=== PATIENT | female | born 1950 | race Hispanic/Latino ===

== ENCOUNTER → 2018-09-20 | Outpatient (CLI) | payer OTHER | END | disposition home or self-care (01) | LOC: RAH 14:00 | PROVIDERS: ATTEND Internal Medicine Cardiovascular Disease | DX: Z13.6 Encounter for screening for cardiovascular disorders (principal) | CPT/HCPCS: 75571 ==

== ENCOUNTER → 2019-11-29 | Outpatient (CLI) | payer OTHER, MEDICARE | END | disposition home or self-care (01) | LOC: DAH 10:10 → EDSTATUS 12-03 21:49 | PROVIDERS: ATTEND Internal Medicine Gastroenterology | DX: Z01.818 Encounter for other preprocedural examination (principal); R14.0 Abdominal distension (gaseous); Z20.828 Contact with and (suspected) exposure to other viral communicable diseases; K92.2 Gastrointestinal hemorrhage, unspecified | CPT/HCPCS: C9803; U0003; 36415 ==

== ENCOUNTER 2020-03-20 16:39 | Emergency (ER) | payer OTHER, MEDICARE ==
[~2020-03-20 16:39] MED LIST: ASPI-1197 PO; ATOR40TA69 PO; CARV25TA PO; FURO40TA5 PO; HYDR100T27 PO; INSU10VI3 SQ; INSU3INS5 SQ; ISOS30TA6 PO; LOSA100T58 PO
== END 2020-03-20 17:25 | disposition left against medical advice (07) ==
LOC: EDH 16:39
DX: Z53.21 Procedure and treatment not carried out due to patient leaving prior to being seen by health care provider (principal); I25.10 Atherosclerotic heart disease of native coronary artery without angina pectoris; I50.9 Heart failure, unspecified; E11.9 Type 2 diabetes mellitus without complications; I10 Essential (primary) hypertension; Z88.0 Allergy status to penicillin

== ENCOUNTER 2020-07-22 18:02 | Observation (INO) | payer OTHER, MEDICARE ==
[~2020-07-22] VITALS: Ht 157.5 cm; Wt 108.4 kg
[~2020-07-22 18:02] MED LIST changes: -ISOS30TA6 PO; +ISOS30TA92 PO
[2020-07-22 18:27] LABS: BASOPHILS % (AUTO) 0.4 % (0.0-5.0); EOSINOPHILS % (AUTO) 13.7 % (0.0-8.0); HEMATOCRIT 37.3 % (36-48); LYMPHOCYTES % (AUTO) 17.9 % (21.0-51.0); MEAN CORPUSCULAR HEMOGLOBIN 26.3 pg (27.0-33.0); MEAN CORPUSCULAR HGB CONC 31.6 g/dL (32.0-36.0); MEAN CORPUSCULAR VOLUME 83.1 fL (79-99); MONOCYTES % (AUTO) 6.5 % (3.0-13.0); NEUTROPHILS % (AUTO) 61.2 % (40.0-77.0); PLATELET COUNT (AUTO) 145 K/uL (130-400); RED BLOOD CELL COUNT(AUTO) 4.49 MIL/uL (4.00-5.50); RED CELL DISTRIBUTION WIDTH 16.2 % (11.0-15.5)
[2020-07-22 18:38] LABS: POTASSIUM 5.8 mmol/L (3.5-5.1)
[2020-07-22 18:43] LABS: ALBUMIN 3.4 g/dL (3.5-5.0); BILIRUBIN,TOTAL 0.4 mg/dL (0.2-1.0); TOTAL PROTEIN, SERUM 7.5 g/dL (6.0-8.3)
[2020-07-22] MEDS ORDERED: SODIUM POLYSTYRENE SULFONATE 15 GM/60 ML ML PO SCH (20:35)
[2020-07-23] VITALS (13 sets, daily range): BP systolic 117–172; BP diastolic 42–114
[2020-07-23] MEDS ORDERED: ISOSORBIDE MONO 30MG TAB SR PO SCH ×2 (02:15→07:30)
[2020-07-23] MEDS ORDERED: GLUCAGON 1MG KIT 1 MG ML IM PRN (02:15)
[2020-07-23] MEDS ORDERED: DEXTROSE 50%-WATER 50 ML DISP.SYRIN IV PRN (02:15)
[2020-07-23 02:35] LABS: BASOPHILS % (AUTO) 0.4 % (0.0-5.0); EOSINOPHILS % (AUTO) 12.1 % (0.0-8.0); LYMPHOCYTES % (AUTO) 16.1 % (21.0-51.0); MEAN CORPUSCULAR HEMOGLOBIN 26.3 pg (27.0-33.0); MEAN CORPUSCULAR HGB CONC 32.1 g/dL (32.0-36.0); MEAN CORPUSCULAR VOLUME 81.9 fL (79-99); MONOCYTES % (AUTO) 5.7 % (3.0-13.0); NEUTROPHILS % (AUTO) 65.3 % (40.0-77.0); PLATELET COUNT (AUTO) 165 K/uL (130-400); RED BLOOD CELL COUNT(AUTO) 4.64 MIL/uL (4.00-5.50); WHITE BLOOD COUNT (AUTO) 10.9 K/uL (4.8-10.8)
[2020-07-23 02:43] LABS: CREATININE 2.2 mg/dL (0.5-1.5); POTASSIUM 5.2 mmol/L (3.5-5.1)
[2020-07-23 02:48] LABS: ALBUMIN 3.5 g/dL (3.5-5.0); BILIRUBIN,TOTAL 0.4 mg/dL (0.2-1.0); TOTAL PROTEIN, SERUM 7.7 g/dL (6.0-8.3)
[2020-07-23] MEDS ORDERED: SODIUM BICARB 8.4% 50ML SYRINGE IVP SCH (03:30)
[2020-07-23] MEDS ORDERED: DEXTROSE 50%-WATER 25 GM/50 ML VIAL IV SCH (03:30)
[2020-07-23] MEDS ORDERED: SODIUM POLYSTYRENE SULFONATE 15 GM/60 ML ML PO SCH (03:30)
[2020-07-23] MEDS ORDERED: ALBUTEROL SULFATE 0.083% 2.5 MG/3 ML INH IH SCH (03:30)
[2020-07-23] MEDS ORDERED: FUROSEMIDE 40MG VIAL (10MG/ML) IV SCH (03:30)
[2020-07-23] MEDS ORDERED: INSULIN HUMULIN R 100 UNIT/ML 3ML IV SCH (03:30)
[2020-07-23] MEDS ORDERED: CALCIUM GLUCONATE 1 GM/10 ML VIAL IV SCH (03:30)
[2020-07-23] MEDS: INSULIN HUMULIN R 100 UNIT/ML 3ML SQ SCH ×4 (07:30→21:00)
[2020-07-23] MEDS: ISOSORBIDE MONO 30MG TAB SR PO SCH (09:00)
[2020-07-23] MEDS ORDERED: LOSARTAN 100 MG TABLET PO SCH (09:00)
[2020-07-23] MEDS: ENOXAPARIN SODIUM 30 MG/0.3 ML SQ SCH (09:00)
[2020-07-23] MEDS: HYDRALAZINE HCL 25 MG TABLET PO SCH ×3 (09:00→22:07)
[2020-07-23] MEDS ORDERED: ASPIRIN 325 MG TABLET PO SCH (09:00)
[2020-07-23] MEDS ORDERED: FUROSEMIDE 40 MG TABLET PO SCH (09:00)
[2020-07-23] MEDS ORDERED: LOSARTAN 50 MG TABLET ONE (09:44)
[2020-07-23 10:05] LABS: CREATININE 2.2 mg/dL (0.5-1.5); POTASSIUM 4.5 mmol/L (3.5-5.1)
[2020-07-23] MEDS: CARVEDILOL 25 MG TABLET PO SCH ×2 (10:06→22:08)
[2020-07-23] MEDS: ASPIRIN 81MG TAB.CHEW PO SCH (10:07)
[2020-07-23] MEDS: FAMOTIDINE/PF 20 MG/2 ML VIAL IV SCH ×2 (10:09→10:11)
[2020-07-23 10:10] LABS: ALBUMIN 3.1 g/dL (3.5-5.0); BILIRUBIN,TOTAL 0.4 mg/dL (0.2-1.0); TOTAL PROTEIN, SERUM 6.9 g/dL (6.0-8.3)
[2020-07-23] MEDS: SODIUM CHLORIDE 0.9% 1000ML 1,000 ML IV SCH (11:00)
[2020-07-23] MEDS ORDERED: GABAPENTIN 100 MG CAPSULE ONE (12:53)
[2020-07-23] MEDS: GABAPENTIN 100 MG CAPSULE PO SCH ×2 (14:26→22:08)
[2020-07-23] MEDS ORDERED: LEVOFLOXACIN 500 MG/D5W 100 ML 100 ML IV SCH (19:30)
[2020-07-23] MEDS: ATORVASTATIN CALCIUM 40 MG TABLET PO SCH (22:08)
[2020-07-24] VITALS (7 sets, daily range): BP systolic 101–137; BP diastolic 39–89
[2020-07-24] MEDS ORDERED: DAPA10TA PO (05:31)
[2020-07-24] MEDS ORDERED: ICOS1CAP PO (05:31)
[2020-07-24] MEDS ORDERED: NITR100C PO (05:31)
[2020-07-24] MEDS ORDERED: VITAMIN D PO (05:31)
[2020-07-24] MEDS ORDERED: FURO40TA5 PO (05:31)
[2020-07-24] MEDS ORDERED: SPIR25TA6 PO (05:31)
[2020-07-24] MEDS ORDERED: GABA-533 PO (05:31)
[2020-07-24] MEDS ORDERED: INSU100I35 SQ ×2 (05:31)
[2020-07-24] MEDS: SODIUM CHLORIDE 0.9% 1000ML 1,000 ML IV SCH (05:38)
[2020-07-24] MEDS: INSULIN HUMULIN R 100 UNIT/ML 3ML SQ SCH ×4 (06:11→20:26)
[2020-07-24] MEDS: CARVEDILOL 25 MG TABLET PO SCH ×2 (09:00→20:21)
[2020-07-24] MEDS: ISOSORBIDE MONO 30MG TAB SR PO SCH (09:00)
[2020-07-24] MEDS: HYDRALAZINE HCL 25 MG TABLET PO SCH ×3 (09:00→20:17)
[2020-07-24] MEDS: ASPIRIN 81MG TAB.CHEW PO SCH (11:03)
[2020-07-24] MEDS: ENOXAPARIN SODIUM 30 MG/0.3 ML SQ SCH (11:04)
[2020-07-24] MEDS: GABAPENTIN 100 MG CAPSULE PO SCH ×3 (11:06→20:18)
[2020-07-24] MEDS: ATORVASTATIN CALCIUM 40 MG TABLET PO SCH (20:18)
[2020-07-24 21:42] LABS: APPEARANCE,URINE Cloudy (CLEAR); BILIRUBIN,URINE Negative (NEGATIVE); COLOR,URINE Yellow (YELLOW); GLUCOSE, URINE (UA) 500 mg/dL (NEGATIVE); KETONES,URINE Negative (NEGATIVE); LEUKOCYTE ESTERASE ,URINE Moderate (NEGATIVE); NITRATE,URINE Negative (NEGATIVE); OCCULT BLOOD,URINE Negative (NEGATIVE); PROTEIN,URINE POS 2+ mg/dL (NEGATIVE); UROBILINOGEN,URINE 0.2 mg/dL (0.2-1.0)
[2020-07-24 21:46] LABS: CREATININE,URINE RANDOM 78 mg/dL (30-135); PROTEIN,URINE RANDOM 139.4 mg/dL (0-11.9)
[2020-07-24 21:52] LABS: BACTERIA,URINE Many /HPF (None Seen); RBC,URINE None Seen /HPF (0-1); WBC,URINE 26-50 /HPF (0-1)
[2020-07-25] VITALS: BP 124/39
[2020-07-25] MEDS: SODIUM CHLORIDE 0.9% 1000ML 1,000 ML IV SCH (02:56)
[2020-07-25 04:00] VITALS: BP 153/55
[2020-07-25 05:48] LABS: HEMATOCRIT 32.7 % (36-48); MEAN CORPUSCULAR HEMOGLOBIN 25.7 pg (27.0-33.0); MEAN CORPUSCULAR HGB CONC 31.8 g/dL (32.0-36.0); MEAN CORPUSCULAR VOLUME 80.9 fL (79-99); RED BLOOD CELL COUNT(AUTO) 4.04 MIL/uL (4.00-5.50); RED CELL DISTRIBUTION WIDTH 15.8 % (11.0-15.5); WHITE BLOOD COUNT (AUTO) 7.3 K/uL (4.8-10.8)
[2020-07-25 06:02] LABS: CREATININE 2.5 mg/dL (0.5-1.5); POTASSIUM 4.4 mmol/L (3.5-5.1)
[2020-07-25] MEDS: INSULIN HUMULIN R 100 UNIT/ML 3ML SQ SCH ×2 (06:19→12:18)
[2020-07-25 07:47] VITALS: BP_SYST 138; BP_SYST 157; BP_SYST 164; BP_DIAS 49; BP_DIAS 60; BP_DIAS 67
[2020-07-25] MEDS: ASPIRIN 81MG TAB.CHEW PO SCH (09:05)
[2020-07-25] MEDS: CARVEDILOL 25 MG TABLET PO SCH (09:06)
[2020-07-25] MEDS: GABAPENTIN 100 MG CAPSULE PO SCH ×2 (09:06→14:15)
[2020-07-25] MEDS: HYDRALAZINE HCL 25 MG TABLET PO SCH ×2 (09:07→14:00)
[2020-07-25] MEDS: ISOSORBIDE MONO 30MG TAB SR PO SCH (09:07)
[2020-07-25] MEDS: FAMOTIDINE/PF 20 MG/2 ML VIAL IV SCH (09:07)
[2020-07-25] MEDS: ENOXAPARIN SODIUM 30 MG/0.3 ML SQ SCH (09:08)
[2020-07-25 11:55] VITALS: BP 103/53
[2020-07-25] MEDS ORDERED: LEVO250S3 PO (12:53)
[2020-07-25] MEDS ORDERED: LEVOFLOXACIN 250 MG/D5W 50ML 50 ML IVPB SCH (18:00)
== END 2020-07-25 16:15 | disposition home or self-care (01) ==
LOC: EDH 18:02 → EDHIP 22:17 → 3DH 07-24 01:58
PROVIDERS: ADMIT Internal Medicine; ATTEND Internal Medicine
DX: R42 Dizziness and giddiness (principal); E87.5 Hyperkalemia; E11.22 Type 2 diabetes mellitus with diabetic chronic kidney disease; I13.0 Hypertensive heart and chronic kidney disease with heart failure and stage 1 through stage 4 chronic kidney disease, or unspecified chronic kidney disease; N18.4 Chronic kidney disease, stage 4 (severe); I50.9 Heart failure, unspecified; N17.9 Acute kidney failure, unspecified; I25.10 Atherosclerotic heart disease of native coronary artery without angina pectoris; E78.5 Hyperlipidemia, unspecified; E66.01 Morbid (severe) obesity due to excess calories; I45.9 Conduction disorder, unspecified; I69.354 Hemiplegia and hemiparesis following cerebral infarction affecting left non-dominant side; I67.1 Cerebral aneurysm, nonruptured; L02.512 Cutaneous abscess of left hand; E78.00 Pure hypercholesterolemia, unspecified; I42.8 Other cardiomyopathies; I49.5 Sick sinus syndrome; L60.0 Ingrowing nail; Z95.0 Presence of cardiac pacemaker; Z79.4 Long term (current) use of insulin; Z79.899 Other long term (current) drug therapy; Z88.0 Allergy status to penicillin; Z68.41 Body mass index [BMI] 40.0-44.9, adult
CPT/HCPCS: 36415 ×3; 70450; 71045; 73120; 73200; 76770; 80048; 80053 ×3; 81001; 82570; 82948 ×9; 83735; 84156; 84484 ×2; 85025 ×2; 85027; 87077; 87088; 87186; 93005 ×2; 93306; 93356; 94640; 96361 ×3; 96365; 96372 ×3; 96375; 96376 ×2; 97039; 97116; 97161; 99285; G0378 ×63; G8978; G8979; G8980; G8981; G8982; G8983; J0610; J1650 ×3; J1815 ×3; J1940; J1956; J3490 ×3; J7070 ×2

== ENCOUNTER → 2021-12-01 | Outpatient (CLI) | payer OTHER, MEDICARE ==
[~2021-12-01] MED LIST changes: +DAPA10TA PO; +GABA-533 PO; +ICOS1CAP PO; +INSU100I35 SQ; -INSU10VI3 SQ; -INSU3INS5 SQ; +LEVO250S3 PO; -LOSA100T58 PO; +VITAMIN D PO
== END | disposition home or self-care (01) ==
LOC: SHCH 14:32
PROVIDERS: ATTEND Internal Medicine
DX: I08.0 Rheumatic disorders of both mitral and aortic valves (principal); I50.9 Heart failure, unspecified; E11.9 Type 2 diabetes mellitus without complications; E78.5 Hyperlipidemia, unspecified
CPT/HCPCS: 93306

== ENCOUNTER → 2022-08-02 | Outpatient (CLI) | payer OTHER, MEDICARE ==
[~2022-08-02] MED LIST changes: -LEVO250S3 PO; +LEVO250S9 PO
== END | disposition home or self-care (01) ==
LOC: SHCH 10:59
PROVIDERS: ATTEND Internal Medicine Cardiovascular Disease
DX: I11.0 Hypertensive heart disease with heart failure (principal); I50.9 Heart failure, unspecified; E11.9 Type 2 diabetes mellitus without complications; Z95.0 Presence of cardiac pacemaker
CPT/HCPCS: 93306

== ENCOUNTER → 2022-12-01 | Outpatient (CLI) | payer OTHER, MEDICARE ==
[~2022-12-01] MED LIST changes: +CARV12.580 PO; -CARV25TA PO; -DAPA10TA PO; +FERR324T4 PO; -FURO40TA5 PO; +Folic Acid/Vitamin B Comp W-C PO; -GABA-533 PO; -HYDR100T27 PO; -ICOS1CAP PO; -ISOS30TA92 PO; -LEVO250S9 PO; +Sevelamer Hcl PO; -VITAMIN D PO
[2022-12-01 16:47] LABS: CREATININE 6.1 mg/dL (0.5-1.5)
== END | disposition home or self-care (01) ==
LOC: LAB 14:30
PROVIDERS: ATTEND Internal Medicine
DX: I42.0 Dilated cardiomyopathy (principal)
CPT/HCPCS: 36415; 80048